=== PATIENT | male | born 1995 | race Caucasian/White ===

== ENCOUNTER 2017-03-10 20:52 | Emergency (ER) | payer SELFPAY ==
[2017-03-10 21:00] VITALS: TEMP 98.1; O2SAT 96
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
[2017-03-10 22:19] VITALS: BP 138/92; PULSE 99
[2017-03-10 22:20] VITALS: RESP 18
== END 2017-03-10 22:22 | disposition home or self-care (01) ==
DX: S09.90XA Unspecified injury of head, initial encounter (principal); R41.82 Altered mental status, unspecified; W01.198A Fall on same level from slipping, tripping and stumbling with subsequent striking against other object, initial encounter

== ENCOUNTER 2017-12-12 03:05 | Emergency (ER) | payer SELFPAY ==
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
[2017-12-12 03:27] VITALS: BP 124/76
== END 2017-12-12 03:32 ==
PROC: 0HQCXZZ Repair Left Upper Arm Skin, External Approach (ICD-10-PCS; principal; 2017-12-12)
DX: S51.012A Laceration without foreign body of left elbow, initial encounter (principal); W16.42XA Fall into unspecified water causing other injury, initial encounter